=== PATIENT | female | born 1990 | race Two or more races ===

== ENCOUNTER → 2025-04-29 | Emergency (ER) | payer OTHER ==
[~2025-04-29] VITALS: Ht 170.2 cm; Wt 77.1 kg
[~2025-04-29] MED LIST: DOLOGESIC CAPLE1 TAB; LORATADINE1 GM; OSEL75CA PO; TUSSIONEX PENNKI5 ML PO; hydrOXYzine PAMOATE 50 MG CAPSULE PO ONE; hydrOXYzine PAMOATE 50 MG CAPSULE PO STA
[2025-04-29 06:54] LABS: BASO % 0.3 % (0.1-1.2); EOS # 0.27 (0.04-0.54); EOS % 2.6 % (0.7-7.0); HEMATOCRIT 37.5 % (34.1-44.9); HEMOGLOBIN 12.1 g/dL (11.2-15.7); LYMPH # 1.51 (1.18-3.74); LYMPH % 14.4 % (19.3-53.1); MEAN CORPUSCULAR HEMOGLOBIN 26.2 pg (25.6-32.2); MONO # 0.83 (0.24-0.82); MONO % 7.9 % (4.7-12.5); NEUT # 7.81 (1.56-6.13); NEUT % 74.5 % (34.0-71.1); PLATELET COUNT 235 K/uL (163-369); RED BLOOD COUNT 4.61 M/uL (3.93-5.22)
[2025-04-29 12:04] LABS: ALBUMIN 3.7 gm/dL (3.4-5.0); BILIRUBIN TOTAL 0.45 mg/dL (0.3-1.2); CALCIUM 8.7 mg/dL (8.5-10.1); CREATININE SERUM 0.81 mg/dL (0.55-1.02); GFR 80.94; POTASSIUM 3.22 mEq/L (3.5-5.1); TOTAL PROTEIN 7.7 gm/dL (6.4-8.2)
== END | disposition home or self-care (01) ==
LOC: ER 05:13
PROVIDERS: General Practice
DX: F41.8 Other specified anxiety disorders (principal); Z88.6 Allergy status to analgesic agent